=== PATIENT | female | born 2000 | race Hispanic/Latino ===

== ENCOUNTER 2024-07-10 19:31 | Inpatient (IN) | payer MEDICAID, OTHER ==
[2024-07-10] MEDS ORDERED: hydrALAZINE 20 MG/ML VIAL SLOW IVP PRN ×2 (20:57→23:15)
[2024-07-10 20:59] VITALS: BMI 29.0
[2024-07-10 21:08] LABS: Fetal Membranes Rupture RUPTURE DETECTED (No Rupture)
[2024-07-10] MEDS: Lactated Ringer's 1,000 ML IV SCH (21:55)
[2024-07-10] MEDS ORDERED: fentaNYL 50 mcg/mL 1 mL Vial SLOW IVP PRN (23:07)
[2024-07-10] MEDS ORDERED: Tranexamic Acid 1,000 MG/10 ML VIAL IVP PRN (23:08)
[2024-07-10] MEDS ORDERED: Ondansetron PF 4 MG/2 ML Vial IVP PRN (23:15)
[2024-07-10] MEDS ORDERED: Lactated Ringer's 1,000 ML IV SCH (23:15)
[2024-07-10] MEDS ORDERED: Acetaminophen 500 MG TAB PO PRN (23:15)
[2024-07-10] MEDS ORDERED: Lidocaine 1% (PF) 30 ML VIAL SC PRN (23:15)
[2024-07-10] MEDS ORDERED: Diphenoxylate HCl/Atropine Tablet PO PRN (23:15)
[2024-07-10] MEDS ORDERED: Promethazine HCl 25 MG/ML VIAL IM PRN (23:15)
[2024-07-10 23:35] LABS: Hematocrit 37.1 % (34.9-44.5); Mean Corpuscular Hemoglobin 29.3 pg (27.0-33.0); Mean Corpuscular Volume 83.6 fL (81.6-98.3); Mean Platelet Volume 10.6 fL (7.4-10.4); Platelet Count 235 10x3/uL (150-450); RBC Distribution Width 13.4 % (11.5-14.5); Red Blood Cell (RBC) Count 4.44 10x6/uL (3.90-5.03); White Blood Cell (WBC) Count 11.6 10x3/uL (3.5-10.5)
[2024-07-10 23:44] LABS: HBsAg Index 0.22 S/CO (0-0.99); Hep B Surf Ag - L&D Non-Reactive S/CO (NonReactive); Syphilis Antibody Nonreactive (Nonreactive); Syphilis Antibody Index 0.05 S/CO (<1.00 Non-Reactive)
[2024-07-11] MEDS: Oxytocin 30 units/NS 500 ML 500 ML IVPB SCH (01:16)
[2024-07-11] MEDS: Ibuprofen 800 MG TAB PO PRN (01:52)
[2024-07-11] MEDS: fentaNYL/Ropivacaine Epidural 0 ML ONE (01:55)
[2024-07-11] MEDS: Methylergonovine 0.2 MG/ML VIAL IM PRN (02:25)
[2024-07-11] MEDS: Misoprostol 200 MCG TAB RC PRN (02:53)
[2024-07-11] MEDS: Carboprost 250 MCG/ML AMP IM PRN (05:04)
[2024-07-11] MEDS: Diphenoxylate HCl/Atropine Tablet PO PRN (05:04)
[2024-07-11] MEDS ORDERED: Ondansetron PF 4 MG/2 ML Vial IVP PRN (05:46)
[2024-07-11] MEDS ORDERED: HYDROcodone/Acetaminophen 5/325 mg Tablet PO PRN (05:46)
[2024-07-11] MEDS ORDERED: Bisacodyl 10 MG SUPP PR PRN (05:46)
[2024-07-11] MEDS ORDERED: Lanolin Ointment 7 GM TUBE TOP PRN (05:46)
[2024-07-11] MEDS ORDERED: Milk Of Magnesia 30 ML UDCUP PO PRN (05:46)
[2024-07-11] MEDS ORDERED: hydrALAZINE 20 MG/ML VIAL SLOW IVP PRN (05:46)
[2024-07-11] MEDS: Ferrous Sulfate 325 MG TAB PO SCH (07:22)
[2024-07-11] MEDS: Prenatal Vitamin 1 TAB PO SCH (07:54)
[2024-07-11] MEDS: Docusate 100 MG CAP PO SCH (07:54)
[2024-07-11] MEDS: Ibuprofen 800 MG TAB PO SCH (09:44)
[2024-07-12] MEDS: Boostrix 0.5 ML (Tdap) VIAL (>/=7 yrs of age) IM ONE (07:53)
[2024-07-12 08:14] VITALS: BP 118/68; TEMP 98.4
== END 2024-07-12 17:30 | disposition home or self-care (01) | DRG 807 ==
LOC: CSHLD/OP 19:31 → CSHLD 21:18 → CSHPP 07-11 05:31
PROVIDERS: ADMIT Family Medicine; ATTEND Family Medicine
PROC: 10E0XZZ Delivery of Products of Conception, External Approach (ICD-10-PCS; principal; 2024-07-11)
PROC: 0HQ9XZZ Repair Perineum Skin, External Approach (ICD-10-PCS; 2024-07-11)
DX: O70.0 First degree perineal laceration during delivery (principal); Z37.0 Single live birth; Z3A.38 38 weeks gestation of pregnancy
CPT/HCPCS: 36415; 84112; 85027; 86780; 86850; 86900; 86901; 87340; 99285; J2210; J2590; J3490; J7120